=== PATIENT | male | born 1985 | race Caucasian/White ===

== ENCOUNTER 2021-03-10 07:54 | Outpatient (CLI) | payer OTHER ==
--- NOTE | 2021-03-10 09:35 | MRI Report ---
PROCEDURE: Shoulder RT W/O INDICATIONS: RIGHT SHOULDER PAIN TECHNIQUE: Noncontrast oblique coronal T2 fast spin echo with fat saturation, oblique sagittal T1 spin echo and T2 fast spin echo with fat saturation, axial T1 spin echo and T2 fast spin echo with fat saturation t hrough the shoulder. COMPARISON: None. Findings: Supraspinatus: Mild tendinopathy with small partial bursal surface tear. Infraspinatus: Mild tendinopathy with distal interstitial tear. Subscapularis: Fluid at the musculotendinous junction (901-20), which may reflect interstitial tear. Teres minor: No evidence of tear. Labrum: Small focus of fluid signal in the anterior labrum (series 601, image 12), compatible with te ar. Biceps tendon: No evidence of subluxation or tear. Acromioclavicular joint: Normal alignment. Muscle: No significant atrophy. Bones: No significant abnormality. Specifically, no evidence of fracture, contusion, or necrosis. Miscellaneous: Trace glenohumeral joint effusion. Minimal subacromial/subdeltoid bursal fluid. No intra-articular bodies. Intact coracoclavicular ligament. IMPRESSION: 1.Mild supraspinatus tendinopathy with small partial bursal surface tear. 2.Mild infraspinatus tendinopathy with distal interstitial tear. 3.Minimal subacromial/subdeltoid bursal fluid. 4.Small anterior labral tear. 5.Subscapularis musculotendinous junction fluid, which may reflect an interstitial tear. Reviewed by: Winston Shi MD on 03/10/2021 9:34 AM PDT Approved by: Winston Shi MD on 03/10/2021 9:34 AM PDT Station ID: [id number]
== END 2021-03-10 07:55 | disposition home or self-care (01) ==
LOC: DI 07:54
DX: M25.511 Pain in right shoulder (principal); M75.111 Incomplete rotator cuff tear or rupture of right shoulder, not specified as traumatic; S43.401A Unspecified sprain of right shoulder joint, initial encounter; M75.91 Shoulder lesion, unspecified, right shoulder; M75.51 Bursitis of right shoulder

== ENCOUNTER 2023-01-30 15:47 | Outpatient (CLI) | payer OTHER ==
--- NOTE | 2023-01-30 16:29 | Sleep Patient Instructions ---
Sleep Center Visit Summary - Patient Visit Information Reason for Visit: Initial consult for evaluation of sleep disordered breathing and other sleep issues. - Patient Instructions Instructions Attached: Sleep Study, Sleep Clinic Visit, Sleep Study Home Monitor Additional Instructions: You will be completing a sleep study, either an in-lab polysomnography (PSG) or home sleep study (HST). You will follow-up in the sleep care office after the sleep study is completed to hear the results and talk about therapy, if needed. You will be called by our office staff to schedule this appointment, but you may contact us with any questions. - Clinic Information Contact: [facility] [address] [place] [address] [email or web address] T: [phone]
--- NOTE | 2023-01-30 16:33 | SLEEP CARE CONSULTATION ---
Information from patient questionnaire entered by Bette Sanchez. I have reviewed and concur with the information entered by Bette Sanchez. This document represents the service I personally performed and the decisions made by me, Tamera Douglas ARNP. History of Present Illness Service Date and Time: 01/30/2023 1547 Reason for Visit: New patient Chief Complaint: reports: Unrefreshed sleep, Snoring, Observed pauses in breathing, Fatigue, Frequent awakenings at night Date of Onset: 10YRS Usual bedtime: 10PM Time it takes to fall asleep: 1HR Snores at night: Yes Observed to quit breathing while asleep: Yes Sleeps alone due to snoring: No Number of times waking at night: 1-2 Reasons for waking at night: reports: Choking (coughing fit), Snoring, Other (UNKNOWN) Toss, Turn, or Twitch while sleeping: Yes Recalls having dreams: Yes Usually gets out of bed at: 5AM; Saturdays 0600 Feels refreshed in the morning: No Morning headache: Yes (every morning; last to 8 AM on workdays; weekends gone by 7 AM) Sleepy or fatigued during the day: Yes (unintentional naps 1-2 times during the week; weekends too) Ever fallen asleep while driving: No Takes day naps: No Dreams during day naps: No Prior sleep studies: No Additional HPI information: I had the pleasure of seeing COLLETTE ARIAS today regarding the possibility of him having a sleep disorder. His current complaints are fatigue, frequent night awakenings, observed pauses in breathing, snoring and unrefreshed sleep. He states his is telling him that he snores and is having pauses in his sleep. He has woke up coughing, feeling like he is choking. He does not wake up feeling refreshed in the mornings and normally has a headache that last a couple hours. He states his father has sleep apnea and is on a PAP machine. - Parasomnia Symptoms Ever been unable to move upon waking from sleep: No Walks in sleep: No Talks in sleep: Yes Ever acted out dreams in sleep: No Ever felt weak in the knees when startled or emotional: No Bothered by creepy, crawly, restless sensations in legs: Yes (sometimes right before bed, walks out; sometimes will wake up 1 x month) Problems with memory or concentration: Yes (both) Subjective Initial Turner Sleepiness Scale score: 12 (01/30/23) Past Medical History Past Medical History: reports: Other (torn labrum in right shoulder, 2020, no surgery) Social History The patient's occupation is a AM. Patient is and lives in [place]. Have you smoked in the past 12 months: No Cigarettes per day (20/pack): 20 Years of smokin Quit date: 2013 Smoking Pack Years: 8.0 Alcohol use: Yes Alcohol amount and frequency: 1-2 ONCE PER WEEK Caffeine use: Yes Caffeine amount and frequency: 1-2 EVERYDAY Family History Family history of sleep disordered breathing: Yes Family Hx Sleep Apnea: Father: Snoring, Sleep apnea - Treated Allergies and Home Medications Known drug allergies: No Drug allergies reviewed: Yes Home medication list reviewed: Yes (Multivitamin) Review of Systems Cardiovascular: denies: high blood pressure Gastrointestinal: denies: heartburn Neurological: denies: headaches, head trauma Psychiatric: denies: anxiety, depression Ear/Nose/Throat: reports: wisdom teeth removed. denies: tonsillectomy Musculoskeletal: reports: joint swelling, muscle pain or cramping Immunologic: denies: allergies to food or environment Physical Exam Vital signs obtained and entered by: BETTE Pastor MA Blood Pressure: 132/80 (LEFT ARM) Cuff size: long Heart Rate: 72 O2 Saturation: 97 Height: 6 ft Weight: 245 lb 9.6 oz Body Mass Index: 33.3 BMI Classification: Obese Neck circumference: 17.5 Soft palate: long Hard palate: arched Uvula: normal Uvula visualization: 0% Mallampati Class IV Tongue: enlarged in size with teeth agudelo on lateral edges Tonsils: small Neck: normal w/o lymphadenopathy or thyromegaly Heart: regular rate and rhythm Lungs: clear bilaterally Impression and Plan 1. Suspected Obstructive Sleep Apnea-Hypopnea Syndrome, as suggested by a history of loud and irregular snoring, observed cessation of breath while asleep, gasping or choking in sleep, morning headache, frequent awakening during the night, unrefreshed sleep, cognitive impairment, and excessive daytime sleepiness. Narrow oropharynx and obesity are common predisposing factors for obstructive sleep apnea-hypopnea syndrome. I recommend proceeding to polysomnography to confirm the diagnosis and to assess severity. If the patient has significant sleep disordered breathing, a manual CPAP titration study will also be performed to find the optimal treatment pressure. I informed the patient of what the sleep studies involve and after some discussion, obtained agreement to proceed. The pathophysiology of obstructive sleep apnea-hypopnea syndrome was discussed with the patient and health risks of cardiovascular and cerebrovascular disease if not treated. Risks of drowsy driving discussed in detail and patient advised to avoid long distance driving and to lung puller at the first sign of drowsiness. Patient agreed to plan. * Schedule polysomnography. * Avoid long distance driving or driving when feeling sleepy. * Avoid alcohol, sedative and muscle relaxant around bedtime. * Attempt to lose weight. * Review instructions provided by trained office staff on how to prepare for the sleep study. * Return for follow-up after sleep study completed. Counseling Topics: Weight loss health impact Visit Type: In Office Time Spent with Patient (minutes): 30 Provider Statement: I spent 100% of the Face to Face Visit with the patient with greater than 50% spent counseling the patient and coordination of care.
[2023-01-30 16:35] VITALS: BP 132/80; O2SAT 97
== END 2023-01-30 15:48 | disposition home or self-care (01) ==
LOC: SC 15:47
PROVIDERS: ATTEND Nurse Practitioner Family
DX: R06.83 Snoring (principal); G47.8 Other sleep disorders; G47.10 Hypersomnia, unspecified; R06.81 Apnea, not elsewhere classified; R51.9 Headache, unspecified; Z87.891 Personal history of nicotine dependence; R41.89 Other symptoms and signs involving cognitive functions and awareness
CPT/HCPCS: 99203; 99212

== ENCOUNTER 2023-03-29 13:51 | Outpatient (CLI) | payer OTHER ==
--- NOTE | 2023-03-29 14:17 | Sleep Patient Instructions ---
Sleep Center Visit Summary - Patient Visit Information Reason for Visit: Sleep study followup - Patient Instructions Additional Instructions: Your sleep study today was negative for significant sleep disordered breathing. However, you had frequent PACs and supraventricular tachycardia that you need to followup with your primary care provider for further evaluation and treatment. You were found to have episodes of snoring. There are different ways to control snoring including weight loss, oral devices made by a dentist or surgical options through ENT specialist. You should not use oral devices that do not fit properly because they can affect your bite. You should also check insurance coverage of oral devices for snoring because they may not be cover well. You may obtain a referral to an ENT specialist through your primary provider. Follow-up as needed. - Clinic Information Contact: Located within [facility] [address] [place] [address] [email or web address] T: [phone]
--- NOTE | 2023-03-29 14:18 | SLEEP CARE CONSULTATION ---
Information from patient questionnaire entered by Edith Sanchez. I have reviewed and concur with the information entered by Edith Sanchez. This document represents the service I personally performed and the decisions made by , Tamera Douglas ARNP. History of Present Illness Service Date and Time: 03/29/2023 1351 Initial Berlin Sleepiness Scale score: 12 (01/30/23) Current [place] Sleepiness Scale score: 15 (03/29/23) Additional HPI information: COLLETTE ARIAS returns for follow up and results of the recently performed polysomnography. The patient was informed of the following findings: No significant sleep disordered breathing with an average AHI of 0 and citlali oxygen saturation of 92%. Cardiac monitoring showed frequent premature atrial contractions and supraventricular tachycardia. I explained the pathophysiology behind obstructive sleep apnea. Patient does not have sleep apnea and was advised how weight gain could increase the risk of developing sleep apnea in the future. I strongly encouraged the patient to lose weight. Patient has light snoring. Snoring can be reduced by weight loss. Weight loss is best achieved with diet consult. Patient instructed to contact PCP for referral. Snoring can also be treated with an oral appliance from a dentist. Advised to check insurance coverage. In addition, an ENT evaluation can be do to see if other treatment is indicated. Patient counseled not drink alcohol less than 4 hours before bedtime as it can increase snoring and apnea. Patient was cautioned about risks of drowsy driving until sleepiness symptoms resolve. Patient denies drowsy driving. Sleep Study - Results Type of Sleep Study: Polysomnography (COMPLETED 03/02/23) Prior sleep studies: No Polysomnography/Home Sleep Study results: IMPRESSION: The quality of the study is good. The patient had normal sleep efficiency. The sleep architecture was relatively normal as well considering the first night effect. Respiratory monitoring showed no sleep disordered breathing (AHI = 0.0) or hypoxia (citlali oxygen saturation of 92%). The patient slept adequately in supine position (supine AHI = 0.0; non-supine = 0.00). Snore was infrequent and light in intensity. There was no significant periodic leg movement of sleep. Cardiac rhythm was sinus rhythm with frequent premature atrial contractions and supraventricular tachycardia. No abnormal behavior (parasomnia) observed during the night. Allergies and Home Medications Known drug allergies: No Drug allergies reviewed: Yes Home medication list reviewed: Yes (no changes) Allergy and home medication list: Allergies No Known Drug Allergies Allergy (Verified 03/28/23 11:08) Review of Systems Review of systems same as previous: Yes (NO CHANGE) Physical Exam Vital signs obtained and entered by: EDITH Pastor MA Blood Pressure: 128/76 (LEFT ARM) Cuff size: regular Heart Rate: 78 O2 Saturation: 98 Height: 6 ft Weight: 249 lb (IN FULL UNIFORM) Body Mass Index: 33.7 BMI Classification: Obese Impression and Plan 1. Supraventricular tachycardia. Cardiac monitoring during night of PSG showed frequent premature atrial contractions and supraventricular tachycardia during the night of the sleep study. It is recommended that he followup with PCP for further cardiac monitoring and treatment as appropriate. He voiced understanding. 2. Snoring but no significant sleep disordered breathing. Patient advised that often weight loss will reduce snoring as well as apnea risk. An oral appliance can also be used for snoring. This would require a dental consultation. Patient cautioned not to use other online appliances as can cause bite issues. Patient is advised to check if insurance will cover. An ENT consult can also be helpful to determine if any other treatment is an option. 3. Obesity, unspecified. Currently patients BMI is 33.7. Obesity increases the risk of apnea, CPAP pressure requirements and overall health risks especially cardiovascular and diabetes. Thus patient is advised to lose weight. * Followup with PCP for supraventricular tachycardia finding during PSG * Attempt to lose weight * Avoid alcohol consumption near bedtime * Return as needed. Counseling Topics: Weight loss health impact Follow up with: PCP Follow up recommended for: Other (cardiac monitoring findings - tachycardia) Visit Type: In Office Time Spent with Patient (minutes): 12 Provider Statement: I spent 100% of the Face to Face Visit with the patient with greater than 50% spent counseling the patient and coordination of care.
[2023-03-29 14:21] VITALS: BP 128/76; O2SAT 98
== END 2023-03-29 13:52 | disposition home or self-care (01) ==
LOC: SC 13:51
PROVIDERS: ATTEND Nurse Practitioner Family
DX: R06.83 Snoring (principal); I47.10 Supraventricular tachycardia, unspecified; I49.1 Atrial premature depolarization; E66.9 Obesity, unspecified; Z68.33 Body mass index [BMI] 33.0-33.9, adult
CPT/HCPCS: 99212

== ENCOUNTER 2023-05-29 14:59 | Outpatient (CLI) | payer OTHER | END 2023-05-29 15:00 | disposition home or self-care (01) | LOC: DI 14:59 | DX: I49.1 Atrial premature depolarization (principal); I51.7 Cardiomegaly | CPT/HCPCS: 93306 ==